=== PATIENT | female | born 1975 | race Caucasian/White ===

== ENCOUNTER 2018-02-05 20:22 | Emergency (ER) | payer OTHER ==
[~2018-02-05] VITALS: Ht 162.6 cm; Wt 68.0 kg
[2018-02-05 20:47] VITALS: Ht 162.6 cm; Wt 68.0 kg
[2018-02-05 23:20] VITALS: BP 107/52
== END 2018-02-05 23:20 | disposition home or self-care (01) ==
LOC: ED 20:22
DX: S00.83XA Contusion of other part of head, initial encounter (principal); Y04.8XXA Assault by other bodily force, initial encounter; Y93.89 Activity, other specified; Y92.89 Other specified places as the place of occurrence of the external cause; Y99.8 Other external cause status
CPT/HCPCS: J1885; J2765